=== PATIENT | male | born 1950 | race Caucasian/White ===

== ENCOUNTER 2024-06-04 10:08 | Emergency (ER) | payer MEDICARE, OTHER ==
[~2024-06-04] VITALS: Ht 182.9 cm; Wt 68.0 kg
[~2024-06-04 10:08] MED LIST: ALBU18HF2 PO; ASPI-1160 PO; CLOP-31 PO; COR3 PO; LIP40 PO; NICO-789 TP; TAMS-11 PO; VARE1TAB24 PO
[2024-06-04 10:10] VITALS: O2SAT 98
[2024-06-04 11:31] LABS: EOSINOPHILS % 1.1 % (0.0-5.0); HEMATOCRIT. 43.6 % (42.0-52.0); HEMOGLOBIN. 14.8 g/dL (14.0-18.0); MEAN CORPUSCULAR HEMOGLOBIN 31.6 pg (28.0-32.0); MEAN CORPUSCULAR HGB CONC 33.9 g/dL (31.0-37.0); MEAN CORPUSCULAR VOLUME 93.3 fL (80.0-94.0); MEAN PLATELET VOLUME 8.2 fl (7.4-10.4); MONOCYTES % 10.9 % (2.0-8.0); PLATELET 192 x1000/uL (130-400); RED BLOOD CELL COUNT 4.67 mill/uL (4.7-6.1); RED CELL DISTRIBUTION WIDTH 14.1 % (11.6-14.6); WHITE BLOOD COUNT 4.2 x1000/uL (4.5-11.0)
[2024-06-04 11:38] LABS: CHLORIDE 105 mEq/L (98-107); POTASSIUM 4.7 mEq/L (3.5-5.1); SODIUM 140 mEq/L (136-145)
[2024-06-04 11:39] LABS: CARBON DIOXIDE 26 mEq/L (21-32)
[2024-06-04 11:40] LABS: CALCIUM 9.6 mg/dL (8.7-10.4)
[2024-06-04 11:44] LABS: CREATININE 0.8 mg/dL (0.6-1.3); GLUCOSE 118 mg/dL (70-105); UREA NITROGEN BLOOD 11 mg/dL (9-23)
[2024-06-04 11:46] LABS: TROPONIN I HIGH SENSITIVITY 7 ng/L (3.0-53)
[2024-06-04 11:50] LABS: D-DIMER 0.25 mg/L FEU (<0.50); INR 1.2; PARTIAL THROMBOPLASTIN TIME 42.4 sec (23.4-31.0); PROTHROMBIN TIME 13.1 sec (9.6-11.0)
[2024-06-04] MEDS: ASPIRIN 81MG TABLET PO SCH (15:30)
[2024-06-04] MEDS: PREDNISONE 20MG TABLET PO ONE (15:33)
[2024-06-04] MEDS: ASPIRIN 81MG TABLET PO ONE (15:33)
[2024-06-04 15:34] VITALS: PULSE 90; RESP 20
[2024-06-04] MEDS: IPRATROPIUM/ALBUTEROL 0.5-3(2.5)MG/3ML NEB HHN ONE (15:34)
[2024-06-04 15:47] LABS: TROPONIN I HIGH SENSITIVITY 7 ng/L (3.0-53)
[2024-06-04 17:45] LABS: TROPONIN I HIGH SENSITIVITY 7 ng/L (3.0-53)
[2024-06-04 19:31] VITALS: BP 114/93; PULSE 91; RESP 18; TEMP 36.89184; O2SAT 98
[2024-06-04] MEDS ORDERED: IOHEXOL-350 100 ML BOTTLE ONE (23:13)
== END 2024-06-04 19:40 | disposition home or self-care (01) ==
LOC: ER 10:21 → EDBEDREQ 10:26 → ER 19:40
DX: R06.02 Shortness of breath (principal); I48.91 Unspecified atrial fibrillation; I21.9 Acute myocardial infarction, unspecified; Z79.899 Other long term (current) drug therapy; Z79.82 Long term (current) use of aspirin
CPT/HCPCS: 99285; 94070; 71275; 71045; 80048; 83880; 85025; 85379; 85610; 85730; 84484; 94640; 93005; 98960; 36415; Q9967; J7512; 94664